=== PATIENT | female | born 1975 | race Caucasian/White ===

== ENCOUNTER 2018-12-28 19:18 | Emergency (ER) | payer OTHER ==
[2018-12-28 19:43] VITALS: BP 140/74; PULSE 73; RESP 16; TEMP 98.3
[2018-12-28] MEDS ORDERED: cefTRIAXone 1,000 MG VIAL (IM USE) IM STA (20:16)
--- NOTE | 2018-12-28 20:16 | ED ---
Wound/Laceration HPI - General Chief Complaint: Wound/Laceration Stated Complaint: Spider bite Time Seen by Provider: 12/28/18 19:44 Source: patient Mode of arrival: ambulatory Limitations: no limitations - History of Present Illness Initial Comments: 43-year-old female presenting today for chief complaint of abscess of right hand. Patient states that she thought she was bit by a spider about a week ago , she states she had bite wilkinson in her inner web of her right hand between her thumb and index finger. Patient states [facility] for evaluation and treatment. Patient states she was started on Bactrim. She states there is no swelling of the digits or pain with range of motion at the fingers. Patient states the swelling covered most of her hand. Patient states within 2 days of taking the Bactrim her symptoms almost completely resolved except there was a small area where the initial "bite" occurred, raised bump. Patient states that the bump today developed a pus like center. She states it has not drained. Patient states there is mild surrounding redness , she states this just hasn't completely subsided from initial treatment. Patient states she has to 2 more days of Bactrim left. Patient denies a fever, chills, night sweats. Patient denies any finger swelling limitations of range of motion or pain to palpation of the palm or hand aside from as the direct center of abscess. Remaining review of systems negative, patient denies any recent fever, chills, shortness of breath, chest pain, back pain, abdominal pain , nausea or vomiting, numbness or tingling, dysuria or hematuria, constipation or diarrhea, headaches or visual changes, or any other complaints. - Related Data Home Medications Medication Instructions Recorded Confirmed Sulfamethox-Tmp 800-160Mg [Bactrim 1 tab PO Q12HR 12/28/18 12/28/18 DS 800-160 mg] Previous Rx's Medication Instructions Recorded Sulfamethox-Tmp 800-160Mg [Bactrim 2 tab PO Q12HR 4 Days #8 tab 12/28/18 DS 800-160 mg] Allergies Allergy/AdvReac Type Severity Reaction Status Date / Time Penicillins Allergy Rash/Hives Verified 12/28/18 19:43 Review of Systems ROS Statement: Those systems with pertinent positive or pertinent negative responses have been documented in the HPI. ROS Other: All systems not noted in ROS Statement are negative. Past Medical History Past Medical History: No Reported History History of Any Multi-Drug Resistant Organisms: None Reported Past Surgical History: No Surgical Hx Reported Past Psychological History: No Psychological Hx Reported Smoking Status: Current every day smoker Past Alcohol Use History: Occasional Past Drug Use History: None Reported General Exam - General Exam Comments Initial Comments: General: The patient is awake and alert, in no distress, and does not appear acutely ill. Eye: Pupils are equal, round and reactive to light, extra-ocular movements are intact. No nystagmus. There is normal conjunctiva bilaterally. No signs of icterus. Ears, nose, mouth and throat: There are moist mucous membranes and no oral lesions. Neck: The neck is supple, there is no tenderness or JVD. Cardiovascular: There is a regular rate and rhythm. No murmur, rub or gallop is appreciated. Respiratory: Lungs are clear to auscultation, respirations are non-labored, breath sounds are equal. No wheezes, stridor, rales, or rhonchi. Musculoskeletal: Normal ROM, no tenderness of the digits of the hand equal in comparison b/l. Strength 5/5. Sensation intact. Radial pulses equal bilaterally 2+. Neurological: A&O x 3. CN II-XII intact, There are no obvious motor or sensory deficits. Coordination appears grossly intact. Speech is normal. Skin: Skin is warm and dry and no rashes. Small 1cm raised abscess with yellow center in the space between thumb and index finger, no significant soft tissue erythema. No active draining. No fusiform swelling of the digits no pain to palpation of the flexor or extensor tendon. No pain to range of motion of the digits of the hands. Psychiatric: Cooperative, appropriate mood & affect, normal judgment. Limitations: no limitations Course Vital Signs 12/28/18 19:38 Temperature 98.3 F Pulse Rate 73 Respiratory 16 Rate Blood Pressure 140/74 O2 Sat by Pulse 97 Oximetry Procedures - Incision & Drainage Consent Obtained: verbal consent Indication: abscess Site: hand Size (cm): 1 I&D Cleaning Method: Iodine Sterile Field Used?: No Scalpel Used: #11 Needle Aspiration Performed?: Yes (minimal discharge) Irrigation Performed?: Yes I&D Drainage Obtained: Pus, Blood Culture Obtained?: Yes Patient Tolerated Procedure: well, no complications Medical Decision Making - Medical Decision Making 43-year-old female presented for right hand abscess. There is no sign of flexor tenosynovitis. No significant cellulitis. Patient states antibiotics at them working with significant improvement. Abscess was drained, there was purulent drainage that is pending culture. Bactrim alleviated symptoms, i feel treatment is therapeutic. Patient was given additional dosing to extend for a full 14 days increased to 2 pills twice daily of double strength. Constitutional symptoms. Upon arrival vital signs within normal limits. At this time I do feel patient is stable for discharge with strict return parameters for any worsening symptoms which were discussed at length. I did discuss the case in detail with attending provider who agreed with impression and plan. Pt was given 1g of ceftrixaone while in the emergency department. Disposition Clinical Impression: Abscess Disposition: HOME SELF-CARE Condition: Good Instructions (If sedation given, give patient instructions): Abscess Incision and Drainage (ED), Abscess (ED) Additional Instructions: Please use medication as discussed. Please follow-up with family doctor in the next 2 days. Please return to emergency room if the symptoms increase or worsen or for any other concerns, as discussed--this includes swelling of the fingers spreading of redness, fever, night sweats, limitations in movement of fingers. Prescriptions: Sulfamethox-Tmp 800-160Mg [Bactrim DS 800-160 mg] 2 tab PO Q12HR 4 Days #8 tab Is patient prescribed a controlled substance at d/c from ED?: No Referrals: Domingo Traore MD [Primary Care Provider] - 1-2 days Time of Disposition: 20:34
== END 2018-12-28 20:36 | disposition home or self-care (01) ==
LOC: EC 19:18
DX: L02.511 Cutaneous abscess of right hand (principal); F17.200 Nicotine dependence, unspecified, uncomplicated; Z88.0 Allergy status to penicillin
CPT/HCPCS: 87070; 87205; 99283; 10160; 96372; J0696